=== PATIENT | female | born 1990 | race Caucasian/White ===

== ENCOUNTER 2024-12-25 17:55 | Emergency (ER) | payer MEDICAID, OTHER ==
[2024-12-25 19:01] LABS: Urine Crystals Unidentified Few /HPF (None Seen); Urine Micro Reflex YN NO BILL MICROSCOPIC
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
[2024-12-25 20:42] VITALS: BP 150/94; TEMP 97.1; O2SAT 100
== END 2024-12-25 20:01 | disposition home or self-care (01) ==
LOC: ER 17:55
DX: O26.892 Other specified pregnancy related conditions, second trimester (principal); Z3A.21 21 weeks gestation of pregnancy; V49.40XA Driver injured in collision with unspecified motor vehicles in traffic accident, initial encounter
CPT/HCPCS: 76815; 81001; 87086; 87088; 99284